=== PATIENT | male | born 1980 | race Caucasian/White ===

== ENCOUNTER 2018-06-27 18:00 | Emergency (ER) | payer SELFPAY ==
[2018-06-27 18:07] VITALS: BP 138/79
--- NOTE | 2018-06-27 19:04 | RADIOLOGY REPORT (SQ) ---
EXAM DESCRIPTION: SHOULDER RIGHT 2 OR MORE VIEWS COMPLETED DATE/TIME: 06/27/2018 6:52 pm REASON FOR STUDY: fell on right shoulder COMPARISON: None. NUMBER OF VIEWS: Three views. TECHNIQUE: Internal rotation, external rotation, and Y view images acquired of the right shoulder. LIMITATIONS: None. FINDINGS: MINERALIZATION: Normal. BONES: No acute fracture or dislocation. Remote surgical decompression of the right AC joint. . JOINTS: No dislocation. VISUALIZED LUNGS AND RIBS: No pneumothorax. No rib fracture. SOFT TISSUES: No radiopaque foreign body. OTHER: No other significant finding. IMPRESSION: NO RADIOGRAPHIC EVIDENCE OF ACUTE INJURY. TECHNICAL DOCUMENTATION: JOB ID: [id number] [place]-[address] 2010 [employer]- All Rights Reserved Reading location - IP/workstation name: [email or web address]
--- NOTE | 2018-06-27 20:14 | ER Document Report ---
HPI - HPI Patient complains to provider of: R shoulder injury Time Seen by Provider: 06/27/18 19:28 Pain Level: 5 Context: 37 male visiting from [place] on a job presents to the emergency department after acute right shoulder injury sustained at work. He states he was lifting up a bag of sand and felt a pop in a tear. He has had 3 prior shoulder surgeries on his right and states this is similar to a previous injury he sustained. He is in town for 1 week and is just requesting a sling and some pain medication to get him through until he can get home to see his orthopedist. Patient complains of severe pain, denies fevers, chills, nausea. - MUSCULOSKELETAL Musculoskeletal: REPORTS: Extremity pain - R shoulder Past Medical History - Social History Smoking Status: Current Some Day Smoker Chew tobacco use (# tins/day): No Frequency of alcohol use: None Drug Abuse: None Family History: None Patient has suicidal ideation: No Patient has homicidal ideation: No Renal/ Medical History: Denies: Hx Peritoneal Dialysis Past Surgical History: Reports: Hx Orthopedic Surgery - R knee, R shoulder, Jaw Vertical Provider Document - CONSTITUTIONAL Agree With Documented VS: Yes Exam Limitations: Physical Impairment - Acute right shoulder pain unable to move it limited range of motion - INFECTION CONTROL TRAVEL OUTSIDE OF THE [place] IN LAST 30 DAYS: No - HEENT HEENT: Atraumatic, Normocephalic - NECK Neck: Normal Inspection - BACK Back: Normal Inspection - MUSCULOSKELETAL/EXTREMETIES Musculoskeletal/Extremeties: Tender - Acute tenderness to palpation in the bicipital groove of the right shoulder. Patient is unable to move his arm at this time. Severe pain with passive range of motion during shoulder flexion and abduction., No Edema - NEURO Level of Consciousness: Awake, Alert, Appropriate - DERM Integumentary: Warm, Dry Course - Re-evaluation Re-evalutation: 06/27/18 22:15 37 male in town for a job presents after an acute shoulder injury. He has had 3 previous surgeries on that shoulder and felt a pop in a tear after lifting a bag of sand. Patient is requesting pain control and immobilization to get him through until he can get home to see his orthopedist who "knows my shoulder ". 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 I have still given patient information for orthopedic follow-up in town. Patient is stable for discharge. - Vital Signs Vital signs: Temp Pulse Resp BP Pulse Ox 97.9 F 79 18 138/79 H 79 L 06/27/18 18:06 06/27/18 18:06 06/27/18 18:06 06/27/18 18:06 06/27/18 18:06 Discharge - Discharge Clinical Impression: Right shoulder injury Qualifiers: Encounter type: initial encounter Qualified Code(s): S49.91XA - Unspecified injury of right shoulder and upper arm, initial encounter Condition: Good Disposition: HOME, SELF-CARE Instructions: Shoulder Injury ([facility]) Additional Instructions: You are seen in the emergency department this afternoon for a injury. I understand you are from out of [facility] and I am giving you a small amount of pain medication to help her get through she can finish the job. Is important a follow-up with your orthopedist when you get back into [facility]. Nonetheless, I have given you a referral for orthopedics here if it gets to the point you need to see them. Please return to the emergency department if your pain becomes so severe you cannot tolerate it, he started developing up fever with redness to the site, or if you have any other concerns. Prescriptions: Oxycodone HCl/Acetaminophen [Percocet 5-325 mg Tablet] 1 tab PO Q6H PRN #20 tab PRN Reason: For Breakthrough Pain Referrals: YANNA BROOKS MD [ACTIVE STAFF] - Follow up as needed
== END 2018-06-27 20:20 | disposition home or self-care (01) ==
LOC: ER 18:00
DX: S49.91XA Unspecified injury of right shoulder and upper arm, initial encounter (principal); M25.511 Pain in right shoulder; X50.9XXA Other and unspecified overexertion or strenuous movements or postures, initial encounter; X50.0XXA Overexertion from strenuous movement or load, initial encounter; Y99.0 Civilian activity done for income or pay; F17.200 Nicotine dependence, unspecified, uncomplicated; Z98.890 Other specified postprocedural states
CPT/HCPCS: 99283